=== PATIENT | female | born 1975 | race Caucasian/White ===

== ENCOUNTER → 2017-04-30 | Outpatient (CLI) | payer BC | LOC: MC.RAD 13:40 | DX: Z12.31 Encounter for screening mammogram for malignant neoplasm of breast (principal) ==

== ENCOUNTER → 2018-07-12 | Outpatient (CLI) | payer BC | LOC: MC.RAD 07:40 | DX: Z12.31 Encounter for screening mammogram for malignant neoplasm of breast (principal) ==

== ENCOUNTER 2018-11-30 11:28 | Outpatient (RCR) | payer OTHER | END 2018-12-28 08:01 | disposition home or self-care (01) | LOC: WSOH 11:28 | DX: M70.41 Prepatellar bursitis, right knee (principal); M25.562 Pain in left knee; S63.501D Unspecified sprain of right wrist, subsequent encounter; W18.09XD Striking against other object with subsequent fall, subsequent encounter ==

== ENCOUNTER 2018-12-28 08:02 | Outpatient (RCR) | payer OTHER | END 2019-02-28 15:35 | disposition home or self-care (01) | LOC: WSOH 08:02 | DX: M25.561 Pain in right knee (principal); M25.652 Stiffness of left hip, not elsewhere classified; M25.461 Effusion, right knee; S63.509A Unspecified sprain of unspecified wrist, initial encounter; W01.0XXA Fall on same level from slipping, tripping and stumbling without subsequent striking against object, initial encounter; Y93.01 Activity, walking, marching and hiking; Y99.0 Civilian activity done for income or pay ==

== ENCOUNTER → 2019-11-24 | Outpatient (CLI) | payer BC | LOC: MC.RAD 13:21 | DX: Z12.31 Encounter for screening mammogram for malignant neoplasm of breast (principal) ==

== ENCOUNTER → 2020-10-18 | Outpatient (CLI) | payer BC | LOC: COL.RAD 07:56 | DX: R10.11 Right upper quadrant pain (principal); M54.9 Dorsalgia, unspecified; K59.00 Constipation, unspecified; Z90.49 Acquired absence of other specified parts of digestive tract; Z90.710 Acquired absence of both cervix and uterus | CPT/HCPCS: Q9967 ==

== ENCOUNTER → 2021-06-25 | Outpatient (CLI) | payer BC | LOC: MC.RAD 09:26 | DX: Z12.31 Encounter for screening mammogram for malignant neoplasm of breast (principal) ==

== ENCOUNTER → 2022-06-29 | Outpatient (CLI) | payer BC | LOC: MC.RAD 14:42 | DX: Z12.31 Encounter for screening mammogram for malignant neoplasm of breast (principal) ==

== ENCOUNTER → 2023-02-02 | Outpatient (CLI) | payer BC | LOC: MHCPAIN 07:51 | DX: M47.817 Spondylosis without myelopathy or radiculopathy, lumbosacral region (principal); M54.50 Low back pain, unspecified | CPT/HCPCS: G0463 ==

== ENCOUNTER → 2024-08-11 | Outpatient (CLI) | payer BC | LOC: MC.RAD 10:27 | DX: Z12.31 Encounter for screening mammogram for malignant neoplasm of breast (principal) ==